=== PATIENT | female | born 1990 | race Two or more races ===

== ENCOUNTER 2016-08-28 19:17 | Emergency (ER) | payer MEDICAID ==
[~2016-08-28] VITALS: Ht 144.8 cm; Wt 91.7 kg
[~2016-08-28 19:17] MED LIST: DEPO MEDROL
[2016-08-28 19:23] VITALS: BP 147/83
[2016-08-28 19:57] LABS: Basophils # (auto) 0 uL; Basophils % (auto) 0.2 % (0.0-2.0); DEFINITIVE VIEW TRANSMISSION; Eosinophils # (auto) 0.1 uL; Eosinophils % (auto) 0.4 % (0.0-7.0); Hematocrit 49.6 % (36.0-46.0); Hemoglobin 15.9 g/dL (12.2-16.2); Lymphocytes # (auto) 1.3 uL; Lymphocytes % (auto) 8.8 % (10.0-50.0); Mean Corpuscular Hemoglobin 26.6 pg (28.0-32.0); Mean Corpuscular Volume 83.1 fL (80.0-100.0); Mean Platelet Volume 8.8 fL (7.4-10.4); Monocytes # (auto) 0.5 uL; Monocytes % (auto) 3.1 % (0.0-12.0); Neutrophils # (auto) 13.3 uL; Neutrophils % (auto) 87.5 % (37.0-80.0); Platelet Count (auto) 354 10^3/uL (140-450); White Blood Cell 15.3 10^3/uL (4.4-10.8)
[2016-08-28 20:17] LABS: Albumin 3.9 g/dL (3.4-5.0); Anion Gap 7 (5-15); Aspartate Aminotransferase 23 U/L (15-37); BUN/Creatinine Ratio 25.4; Blood Urea Nitrogen 18 mg/dL (7-18); Calcium 8.5 mg/dL (8.5-10.1); Carbon Dioxide 25 mmol/L (21-32); Chloride 104 mmol/L (98-107); GFR African American 126 mL/min; GFR Non-African American 104 mL/min; Glucose 97 mg/dL (74-106); Sodium 136 mmol/L (136-145)
[2016-08-28 20:21] LABS: Alkaline Phosphatase 98 U/L (45-117); Bilirubin, Total 0.3 mg/dL (0.2-1.0); Total Protein 8.3 g/dL (6.4-8.2)
[2016-08-28 22:18] LABS: Urine Bilirubin Negative (Negative); Urine Blood 1+ /uL (Negative); Urine Color Yellow (Yellow); Urine Glucose Normal (Normal); Urine Ketone TRACE (Negative); Urine Mucus FEW (None Seen); Urine Nitrite Negative (Negative); Urine RBC 5 /hpf (0 - 4); Urine Squamous Epithelial Cell MOD /hpf (<5); Urine Urobilinogen Normal (Negative); Urine pH 5.5 (5.0-8.0)
== END 2016-08-29 00:27 | disposition left against medical advice (07) ==
LOC: ER 19:19
DX: R10.9 Unspecified abdominal pain (principal); R07.89 Other chest pain; R11.2 Nausea with vomiting, unspecified; Z53.21 Procedure and treatment not carried out due to patient leaving prior to being seen by health care provider
CPT/HCPCS: 36415; 80053; 81001; 81025; 84484; 85025; 93005

== ENCOUNTER 2018-07-24 18:25 | Emergency (ER) | payer MEDICAID ==
[~2018-07-24] VITALS: Ht 144.8 cm; Wt 81.6 kg
[2018-07-24 19:25] LABS: Basophils # (auto) 0.1 uL; Eosinophils # (auto) 0.1 uL; Eosinophils % (auto) 0.5 % (0.0-7.0); Hemoglobin 16.1 g/dL (12.2-16.2); Lymphocytes # (auto) 2.7 uL; Lymphocytes % (auto) 22.3 % (10.0-50.0); Mean Corpuscular Hemoglobin 28.2 pg (28.0-32.0); Mean Corpuscular Hgb Conc. 33.5 g/dL (32.0-36.0); Mean Corpuscular Volume 84.3 fL (80.0-100.0); Monocytes # (auto) 0.8 uL; Monocytes % (auto) 6.9 % (0.0-12.0); Neutrophils # (auto) 8.4 uL; Neutrophils % (auto) 69.3 % (37.0-80.0); Nucleated Red Blood Cells % 0.1 %; Platelet Count (auto) 281 10^3/uL (140-450); Red Blood Cells 5.69 10^6/uL (4.0-5.20); Red Cell Distribution Width 13.9 % (11.8-14.3); White Blood Cell 12.2 10^3/uL (4.4-10.8)
[2018-07-24 21:45] VITALS: BP 145/89
[2018-07-24 22:22] LABS: Urine Bacteria FEW /hpf (None Seen); Urine Blood 1+ /uL (Negative); Urine Mucus FEW (None Seen); Urine Specific Gravity 1.028 (1.001-1.035); Urine WBC 5 /hpf (0 - 5)
== END 2018-07-24 22:03 | disposition home or self-care (01) ==
LOC: ER 18:25
DX: N93.9 Abnormal uterine and vaginal bleeding, unspecified (principal)
CPT/HCPCS: 36415; 76801; 76817; 81001; 84702; 85025

== ENCOUNTER 2018-09-17 12:57 | Emergency (ER) | payer MEDICAID ==
[~2018-09-17] VITALS: Ht 144.8 cm; Wt 84.8 kg
[2018-09-17 14:03] LABS: Urine Bacteria FEW /hpf (None Seen); Urine Blood Negative /uL (Negative); Urine Mucus FEW (None Seen); Urine Specific Gravity 1.031 (1.001-1.035); Urine WBC 3 /hpf (0 - 5)
[2018-09-17 16:49] VITALS: BP 137/81
== END 2018-09-17 16:51 | disposition home or self-care (01) ==
LOC: ER 13:06
DX: O23.41 Unspecified infection of urinary tract in pregnancy, first trimester (principal); Z3A.11 11 weeks gestation of pregnancy
CPT/HCPCS: 76801; 81001

== ENCOUNTER → 2018-10-09 | Emergency (ER) | payer MEDICAID | END | disposition left against medical advice (07) | LOC: ER 02:13 | DX: R11.2 Nausea with vomiting, unspecified (principal); Z53.21 Procedure and treatment not carried out due to patient leaving prior to being seen by health care provider ==

== ENCOUNTER 2018-10-30 13:02 | Emergency (ER) | payer MEDICAID ==
[~2018-10-30] VITALS: Ht 144.8 cm; Wt 87.1 kg
[2018-10-30 14:37] LABS: Basophils # (auto) 0.1 uL; Basophils % (auto) 0.5 % (0.0-2.0); Eosinophils # (auto) 0 uL; Eosinophils % (auto) 0.4 % (0.0-7.0); Hematocrit 40.6 % (36.0-46.0); Hemoglobin 13.8 g/dL (12.2-16.2); Lymphocytes # (auto) 1.8 uL; Lymphocytes % (auto) 15.1 % (10.0-50.0); Mean Corpuscular Hemoglobin 28.7 pg (28.0-32.0); Mean Corpuscular Hgb Conc. 34.1 g/dL (32.0-36.0); Mean Corpuscular Volume 84.2 fL (80.0-100.0); Nucleated Red Blood Cells % 0.1 %; Platelet Count (auto) 257 10^3/uL (140-450); Red Blood Cells 4.82 10^6/uL (4.0-5.20); Red Cell Distribution Width 14.6 % (11.8-14.3); White Blood Cell 11.9 10^3/uL (4.4-10.8)
[2018-10-30 14:59] LABS: Albumin 3.2 g/dL (3.4-5.0); Calcium 8.4 mg/dL (8.5-10.1); Potassium 3.6 mmol/L (3.5-5.1)
[2018-10-30 15:03] LABS: BUN/Creatinine Ratio 12.3; Bilirubin, Total 0.4 mg/dL (0.2-1.0); Total Protein 7.3 g/dL (6.4-8.2)
[2018-10-30 15:36] LABS: Urine Bacteria MOD /hpf (None Seen); Urine Blood Negative /uL (Negative); Urine Mucus FEW (None Seen); Urine Specific Gravity 1.033 (1.001-1.035); Urine WBC 4 /hpf (0 - 5)
[2018-10-30] MEDS ORDERED: SODIUM CHLORIDE 0.9% 1,000 ML IV ONE (20:00)
[2018-10-30] MEDS ORDERED: cefTRIAXone 1GM/50ML D5W 50 ML IV ONE (20:00)
[2018-10-30 21:32] VITALS: BP 114/76
== END 2018-10-30 22:08 | disposition home or self-care (01) ==
LOC: ER 13:02
DX: O26.892 Other specified pregnancy related conditions, second trimester (principal); R10.30 Lower abdominal pain, unspecified; R19.7 Diarrhea, unspecified; Z3A.18 18 weeks gestation of pregnancy
CPT/HCPCS: 36415; 76805; 80053; 81001; 84702; 85025; 85048; 87045; 87493; 87899; 96365; 99284; J0696; J7030

== ENCOUNTER 2020-01-04 05:44 | Emergency (ER) | payer MEDICAID ==
[~2020-01-04] VITALS: Ht 144.8 cm; Wt 82.1 kg
[2020-01-04] MEDS ORDERED: KETOROLAC TROMETH 60MG/2ML VIAL IM ONE (08:00)
[2020-01-04 08:12] LABS: Basophils # (auto) 0.1 10 ^3/uL (0-0.2); Eosinophils # (auto) 0.1 10 ^3/uL (0-0.8); Eosinophils % (auto) 1.3 % (0.0-7.0); Hemoglobin 15.3 g/dL (12.2-16.2); Lymphocytes # (auto) 1.8 10 ^3/uL (0.4-5.4); Lymphocytes % (auto) 19.4 % (10.0-50.0); Mean Corpuscular Hemoglobin 27.7 pg (28.0-32.0); Mean Corpuscular Hgb Conc. 33.3 g/dL (32.0-36.0); Mean Corpuscular Volume 83.2 fL (80.0-100.0); Monocytes # (auto) 0.5 10 ^3/uL (0-1.3); Monocytes % (auto) 5.8 % (0.0-12.0); Neutrophils # (auto) 6.6 10 ^3/uL (1.6-8.6); Neutrophils % (auto) 72.5 % (37.0-80.0); Platelet Count (auto) 209 10^3/uL (140-450); Red Blood Cells 5.53 10^6/uL (4.0-5.20); White Blood Cell 9.1 10^3/uL (4.4-10.8)
[2020-01-04 08:32] LABS: Potassium 3.7 mmol/L (3.5-5.1)
[2020-01-04 08:33] LABS: Albumin 3.9 g/dL (3.4-5.0); Calcium 8.4 mg/dL (8.5-10.1)
[2020-01-04 08:37] LABS: BUN/Creatinine Ratio 20.3; Bilirubin, Total 0.4 mg/dL (0.2-1.0); Total Protein 7.9 g/dL (6.4-8.2)
[2020-01-04 09:25] VITALS: BP 122/82
== END 2020-01-04 09:42 | disposition home or self-care (01) ==
LOC: ER 05:44
DX: R10.13 Epigastric pain (principal); R11.2 Nausea with vomiting, unspecified; K21.9 Gastro-esophageal reflux disease without esophagitis; Z87.11 Personal history of peptic ulcer disease
CPT/HCPCS: 36415; 76705; 80053; 81002; 83690; 85025; 96372; 99284; J1885

== ENCOUNTER 2021-12-18 20:05 | Inpatient (IN) | payer MEDICAID ==
[~2021-12-18] VITALS: Ht 144.8 cm; Wt 85.5 kg
[2021-12-18] MEDS ORDERED: fentaNYL CITRATE 100 MCG/2 ML VL IV ONE (20:30)
[2021-12-18] MEDS ORDERED: SODIUM CHLORIDE 0.9% 1,000 ML IV ONE (20:30)
[2021-12-18] MEDS ORDERED: ONDANSETRON HCL 4 MG/2 ML VIAL IV ONE (20:30)
[2021-12-18 21:42] LABS: Basophils # (auto) 0.1 10 ^3/uL (0-0.2); Basophils % (auto) 0.7 % (0.0-2.0); Eosinophils # (auto) 0.1 10 ^3/uL (0-0.8); Eosinophils % (auto) 0.4 % (0.0-7.0); Hematocrit 45.3 % (36.0-46.0); Hemoglobin 15.8 g/dL (12.2-16.2); Lymphocytes # (auto) 1.4 10 ^3/uL (0.4-5.4); Mean Corpuscular Hemoglobin 28.8 pg (28.0-32.0); Mean Corpuscular Volume 82.2 fL (80.0-100.0); Monocytes # (auto) 0.5 10 ^3/uL (0-1.3); Monocytes % (auto) 3.1 % (0.0-12.0); Neutrophils # (auto) 13.6 10 ^3/uL (1.6-8.6); Neutrophils % (auto) 86.8 % (37.0-80.0); Red Cell Distribution Width 13.7 % (11.8-14.3); White Blood Cell 15.7 10^3/uL (4.4-10.8)
[2021-12-18] MEDS ORDERED: PANTOPRAZOLE 40 MG/10 ML VIAL INJ IV ONE (21:45)
[2021-12-18 21:59] LABS: Alanine Aminotransferase 17 U/L (13-56); Albumin 4.1 g/dL (3.4-5.0); Anion Gap 8 (5-15); Aspartate Aminotransferase 11 U/L (15-37); BUN/Creatinine Ratio 19.7; Blood Urea Nitrogen 13 mg/dL (7-18); Calcium 8.9 mg/dL (8.5-10.1); Carbon Dioxide 22 mmol/L (21-32); Chloride 109 mmol/L (98-107); GFR African American 133 mL/min; GFR Non-African American 110 mL/min; Glucose 100 mg/dL (74-106); Lipase 131 U/L (73-393); Potassium 3.8 mmol/L (3.5-5.1); Sodium 139 mmol/L (136-145)
[2021-12-18 22:02] LABS: Alkaline Phosphatase 81 U/L (45-117); Bilirubin, Total 0.6 mg/dL (0.2-1.0); Total Protein 8.5 g/dL (6.4-8.2)
[2021-12-18] MEDS ORDERED: PIPERACILLIN-TAZOB 3.375GM 100 ML IV ONE (22:45)
[2021-12-18 23:28] LABS: Urine Bacteria FEW /hpf (None Seen); Urine Blood Negative /uL (Negative); Urine Hyaline Cast FEW /lpf (0 - 2); Urine Mucus FEW (None Seen); Urine Specific Gravity 1.033 (1.001-1.035); Urine WBC 1 /hpf (0 - 5)
[2021-12-18 23:45] LABS: Amphetamine Screen, Urine NEGATIVE (NEGATIVE); Barbiturate Scree,Urine NEGATIVE (NEGATIVE); Cannabinoid Screen, Urine POSITIVE (NEGATIVE)
[2021-12-18 23:53] LABS: Benzodiazephine Screen, Urine NEGATIVE (NEGATIVE); Cocaine Screen, Urine NEGATIVE (NEGATIVE); Opiate Scree,Urine NEGATIVE (NEGATIVE); Phencyclidine Screen, Urine NEGATIVE (NEGATIVE)
[2021-12-19] MEDS ORDERED: ACETAMINOPHEN 325 MG TAB PO ONE (09:30)
[2021-12-19] MEDS ORDERED: ONDANSETRON HCL 4 MG/2 ML VIAL IV ONE (11:00)
[2021-12-19] MEDS ORDERED: ACETAMINOPHEN 325 MG TAB PO PRN (12:45)
[2021-12-19] MEDS ORDERED: ONDANSETRON HCL 4 MG/2 ML VIAL IV PRN (12:45)
[2021-12-19] MEDS ORDERED: MORPHINE SULFATE INJ 2 MG/ml SYRG IV PRN (12:45)
[2021-12-19] MEDS: SODIUM CHLORIDE 0.9% 1,000 ML IV SCH ×2 (13:07→21:05)
[2021-12-19 14:56] LABS: INR 1.06 (0.9-1.15)
[2021-12-19 17:00] VITALS: BP 129/76
[2021-12-19] MEDS: SUCRALFATE 1 GM/10 ML ORAL SUSP PO SCH ×2 (17:00→22:39)
[2021-12-19 21:43] VITALS: BP 126/71
[2021-12-19] MEDS ORDERED: PANTOPRAZOLE 40 MG/10 ML VIAL INJ IV SCH (22:00)
[2021-12-19] MEDS: PANTOPRAZOLE 40 MG/10 ML VIAL INJ IV SCH (22:38)
[2021-12-19] MEDS: HYDROcodone-ACET 5/325MG TAB PO PRN (23:28)
[2021-12-20 04:54] VITALS: BP 114/66
[2021-12-20] MEDS: SODIUM CHLORIDE 0.9% 1,000 ML IV SCH ×3 (05:26→22:05)
[2021-12-20 07:01] LABS: INR 1.09 (0.9-1.15); Partial Thromboplastin Time 28.2 sec (23.6-33.0)
[2021-12-20] MEDS: SUCRALFATE 1 GM/10 ML ORAL SUSP PO SCH ×4 (07:01→22:43)
[2021-12-20] MEDS: HYDROcodone-ACET 5/325MG TAB PO PRN ×2 (08:23→20:52)
[2021-12-20] MEDS: PANTOPRAZOLE 40 MG/10 ML VIAL INJ IV SCH ×2 (08:24→22:43)
[2021-12-20 08:30] VITALS: BP 124/77
[2021-12-20 13:00] VITALS: BP 132/84
[2021-12-20 17:00] VITALS: BP 139/96
[2021-12-21 01:01] VITALS: BP 142/82
[2021-12-21 04:23] VITALS: BP 126/72
[2021-12-21] MEDS: SODIUM CHLORIDE 0.9% 1,000 ML IV SCH ×2 (06:05→14:45)
[2021-12-21] MEDS: SUCRALFATE 1 GM/10 ML ORAL SUSP PO SCH ×3 (06:06→17:16)
[2021-12-21 06:43] LABS: Eosinophils # (auto) 0.1 10 ^3/uL (0-0.8); Lymphocytes # (auto) 2.8 10 ^3/uL (0.4-5.4); Monocytes # (auto) 0.7 10 ^3/uL (0-1.3); Neutrophils # (auto) 5.1 10 ^3/uL (1.6-8.6); Nucleated Red Blood Cells % 0.1 %; White Blood Cell 8.8 10^3/uL (4.4-10.8)
[2021-12-21 06:44] LABS: Basophils # (auto) 0.1 10 ^3/uL (0-0.2); Basophils % (auto) 0.7 % (0.0-2.0); Eosinophils % (auto) 1.5 % (0.0-7.0); Hematocrit 38.3 % (36.0-46.0); Hemoglobin 13.5 g/dL (12.2-16.2); Mean Corpuscular Hgb Conc. 35.3 g/dL (32.0-36.0); Mean Corpuscular Volume 82.1 fL (80.0-100.0); Monocytes % (auto) 7.9 % (0.0-12.0); Neutrophils % (auto) 57.9 % (37.0-80.0); Red Blood Cells 4.67 10^6/uL (4.0-5.20); Red Cell Distribution Width 13.6 % (11.8-14.3)
[2021-12-21 06:54] LABS: Potassium 3.6 mmol/L (3.5-5.1)
[2021-12-21 06:59] LABS: BUN/Creatinine Ratio 7.8; Calcium 8.5 mg/dL (8.5-10.1); Magnesium 2.3 mg/dL (1.6-2.6)
[2021-12-21] MEDS: PANTOPRAZOLE 40 MG/10 ML VIAL INJ IV SCH (08:19)
[2021-12-21 13:00] VITALS: BP 129/78
[2021-12-21] MEDS: HYDROcodone-ACET 5/325MG TAB PO PRN (13:47)
[2021-12-21] MEDS ORDERED: LIDOCAINE VISCOUS 2% 15ML UD ONE (14:04)
[2021-12-21] MEDS ORDERED: SODIUM CHLORIDE LOCK 10 ML ONE (14:04)
[2021-12-21] MEDS ORDERED: diphenhdrAMINE HCL 50 MG/1 ML VL ONE (14:04)
[2021-12-21] MEDS: MIDAZOLAM HCL 5 MG/ML-1ML VIAL ONE ×2 (14:48→14:51)
[2021-12-21] MEDS: fentaNYL CITRATE 100 MCG/2 ML VL ONE ×2 (14:48→14:51)
[2021-12-21 15:13] VITALS: BP 129/78
[2021-12-21 17:00] VITALS: BP 108/64
== END 2021-12-21 18:00 | disposition home or self-care (01) | DRG 241 ==
LOC: ER 20:05 → EDUNIT# 20:05 → EDBD 20:05 → OVERFLOW 12-19 12:38 → WEST WING 12-19 17:07
PROVIDERS: ADMIT Internal Medicine; ATTEND Internal Medicine
PROC: 0DB68ZX Excision of Stomach, Via Natural or Artificial Opening Endoscopic, Diagnostic (ICD-10-PCS; principal; 2021-12-21 14:44)
DX: K29.71 Gastritis, unspecified, with bleeding (principal); D72.829 Elevated white blood cell count, unspecified; K29.81 Duodenitis with bleeding; E66.01 Morbid (severe) obesity due to excess calories; Z20.822 Contact with and (suspected) exposure to COVID-19; K21.9 Gastro-esophageal reflux disease without esophagitis; F17.210 Nicotine dependence, cigarettes, uncomplicated; Z87.11 Personal history of peptic ulcer disease; Z68.39 Body mass index [BMI] 39.0-39.9, adult
CPT/HCPCS: 36415; 43239; 74176; 80048; 80053; 80307; 81001; 82270; 83605; 83690; 83735; 84484; 84702; 85025; 85610; 85730; 86850; 86900; 86901; 93005; 96361; 96365; 96366; 96375; C9113; G0378; J2250; J2405; J2543

== ENCOUNTER 2022-10-16 12:14 | Emergency (ER) | payer MEDICAID ==
[~2022-10-16] VITALS: Ht 144.8 cm; Wt 87.8 kg
[2022-10-16 12:58] LABS: Basophils # (auto) 0.1 10 ^3/uL (0-0.2); Basophils % (auto) 0.6 % (0.0-2.0); Eosinophils # (auto) 0.1 10 ^3/uL (0-0.8); Eosinophils % (auto) 0.7 % (0.0-7.0); Hemoglobin 14.5 g/dL (12.2-16.2); Lymphocytes # (auto) 1.6 10 ^3/uL (0.4-5.4); Lymphocytes % (auto) 14.6 % (10.0-50.0); Mean Corpuscular Hemoglobin 27.9 pg (28.0-32.0); Mean Corpuscular Hgb Conc. 33.8 g/dL (32.0-36.0); Mean Corpuscular Volume 82.5 fL (80.0-100.0); Monocytes # (auto) 0.4 10 ^3/uL (0-1.3); Monocytes % (auto) 3.9 % (0.0-12.0); Neutrophils # (auto) 8.6 10 ^3/uL (1.6-8.6); Neutrophils % (auto) 80.2 % (37.0-80.0); Red Blood Cells 5.22 10^6/uL (4.0-5.20); Red Cell Distribution Width 14.9 % (11.8-14.3); White Blood Cell 10.7 10^3/uL (4.4-10.8)
[2022-10-16 13:24] LABS: Albumin 3.8 g/dL (3.4-5.0); Calcium 8.6 mg/dL (8.5-10.1); Potassium 4.4 mmol/L (3.5-5.1)
[2022-10-16 13:29] LABS: BUN/Creatinine Ratio 17.7 (10.0-20.0); Bilirubin, Total 0.5 mg/dL (0.2-1.0); Total Protein 7.6 g/dL (6.4-8.2)
[2022-10-16] MEDS ORDERED: ONDANSETRON ODT 4 MG TAB PO ONE (15:45)
[2022-10-16] MEDS ORDERED: LIDOCAINE VISCOUS 2% 15ML UD PO ONE (15:45)
[2022-10-16] MEDS ORDERED: FAMOTIDINE 20 MG TAB PO ONE (15:45)
[2022-10-16] MEDS ORDERED: MAALOX PLUS or MAALOX 30 ML PO ONE (15:45)
[2022-10-16 15:51] LABS: Urine Bacteria FEW /hpf (None Seen); Urine Blood 1+ /uL (Negative); Urine Mucus FEW (None Seen); Urine Specific Gravity 1.024 (1.001-1.035); Urine WBC 1 /hpf (0 - 5)
[2022-10-16 17:34] VITALS: BP 118/83
[2022-10-16] MEDS ORDERED: OMEP-434 PO (17:46)
== END 2022-10-16 17:46 | disposition home or self-care (01) ==
LOC: ER 12:14
DX: K29.00 Acute gastritis without bleeding (principal); K21.9 Gastro-esophageal reflux disease without esophagitis; Z32.02 Encounter for pregnancy test, result negative
CPT/HCPCS: 36415; 80053; 81001; 81025; 85025; 99284; Q0162